=== PATIENT | female | born 1975 ===

== ENCOUNTER 2020-09-03 07:28 | Outpatient (REF) | payer OTHER, SELFPAY ==
[2020-09-03 07:51] LABS: COVID-19 Test Negative (Negative)
== END 2020-09-03 07:29 | disposition home or self-care (01) ==
LOC: HO.EMPCOV 07:28
PROVIDERS: Visit Provider Internal Medicine
DX: Z20.828 Contact with and (suspected) exposure to other viral communicable diseases (principal)
CPT/HCPCS: 87635; C9803

== ENCOUNTER 2020-11-11 07:38 | Outpatient (REF) | payer OTHER, SELFPAY ==
[2020-11-11 07:58] LABS: COVID-19 Test Negative (Negative)
== END 2020-11-11 07:39 | disposition home or self-care (01) ==
LOC: HO.EMPCOV 07:38
PROVIDERS: Visit Provider Internal Medicine
DX: Z11.52 Encounter for screening for COVID-19 (principal)
CPT/HCPCS: 36415; 87635; C9803

== ENCOUNTER → 2024-03-20 14:19 | Outpatient (BNVA) | payer OTHER, SELFPAY | PROVIDERS: Visit Provider Physician Assistant Medical | DX: Z13.89 Encounter for screening for other disorder (principal) | CPT/HCPCS: 71045; 73564; 99204 ==

== ENCOUNTER → 2024-03-22 13:15 | Outpatient (BNVA) | payer OTHER, SELFPAY | PROVIDERS: Visit Provider Physician Assistant Medical | DX: Z13.89 Encounter for screening for other disorder (principal) | CPT/HCPCS: 99213 ==

== ENCOUNTER → 2024-03-26 14:20 | Outpatient (BNVA) | payer OTHER, SELFPAY | PROVIDERS: Visit Provider Physician Assistant Medical | DX: Z13.89 Encounter for screening for other disorder (principal) | CPT/HCPCS: 99213 ==

== ENCOUNTER → 2024-04-02 13:45 | Outpatient (BNVA) | payer OTHER, SELFPAY | PROVIDERS: Visit Provider Physician Assistant Medical | DX: Z13.89 Encounter for screening for other disorder (principal) | CPT/HCPCS: 99213 ==

== ENCOUNTER → 2024-04-12 12:33 | Outpatient (BNVA) | payer OTHER, SELFPAY | PROVIDERS: Visit Provider Physician Assistant Medical | DX: Z13.89 Encounter for screening for other disorder (principal) | CPT/HCPCS: 99213 ==

== ENCOUNTER → 2024-04-19 13:12 | Outpatient (BNVA) | payer OTHER, SELFPAY | PROVIDERS: Visit Provider Physician Assistant Medical | DX: Z13.89 Encounter for screening for other disorder (principal) | CPT/HCPCS: 99213 ==

== ENCOUNTER → 2024-05-01 08:08 | Outpatient (BNVA) | payer OTHER, SELFPAY | PROVIDERS: Visit Provider Physician Assistant Medical | DX: Z13.89 Encounter for screening for other disorder (principal) | CPT/HCPCS: 99213 ==

== ENCOUNTER 2024-05-09 12:06 | Outpatient (REF) | payer OTHER, SELFPAY ==
--- NOTE | ~2024-05-09 | MR_ITS ---
EXAMINATION: MR KNEE WITHOUT CONTRAST, LEFT CLINICAL INFORMATION: Pain. Internal derangement. COMPARISON: Radiograph dated 03/20/2024 TECHNIQUE: MRI of the knee without contrast was performed using routine sequences on a high-field scanner. FINDINGS: MENISCI: Medial Meniscus: Intact Lateral Meniscus: Small horizontal cleavage tear of the free edge of the lateral meniscal body with associated degenerative intrasubstance signal. LIGAMENTS: Cruciate: Intact Collateral: Intact EXTENSOR MECHANISM: Mild quadriceps tendinosis. Patellar and quadriceps tendons are intact. ARTICULAR CARTILAGE/BONE: Patellofemoral Compartment: Severe, full-thickness articular cartilage loss is present at the majority of the lateral patellar facet and median ridge and is associated with subchondral edema and cortical irregularity. High-grade articular cartilage loss is also present at the lateral trochlear facet with underlying articular cortical remodeling, sclerosis, and subchondral edema. Moderate-sized marginal osteophytes. There is mild lateral patellar subluxation on the study obtained in frontal extension. TT TG distance measures 0.8 cm. Medial Compartment: Small to moderate-sized marginal osteophytes. Articular cartilage appears well-preserved Lateral Compartment: Moderate to large marginal osteophytes. Mild nonuniform thinning in the lateral tibial plateau, more pronounced medially. Minimal superficial chondral fibrillation of the femoral condyle weightbearing surface. Mild partial-thickness cartilage loss and full-thickness fissuring are evident at the proximal margin of the posterior nonweightbearing surface of the lateral femoral condyle. JOINT FLUID AND BURSAE: Moderate-sized joint effusion. No Anthony's cyst. Small synovial cysts are present of the anterior and posterior margin of the medial compartment near the meniscal tibial recesses. MR/MR knee LT wo con IMPRESSION: 1. Moderate to severe patellofemoral compartment osteoarthritis, characterized primarily by lateral compartment articular cartilage loss. More mild osteoarthritis in the lateral compartment. 2. Small horizontal cleavage tear of the lateral meniscal body. 3. Mild quadriceps tendinosis. 4. Moderate-sized joint effusion. Electronically signed by: Reinaldo Lantigua MD 05/13/2024 10:38 AM EDT
== END 2024-05-09 12:07 | disposition home or self-care (01) ==
LOC: HO.MRI 12:06
PROVIDERS: Visit Provider Physician Assistant Medical
DX: M23.92 Unspecified internal derangement of left knee (principal)
CPT/HCPCS: 73721

== ENCOUNTER 2024-05-14 10:13 | Outpatient (AMB) | payer OTHER, SELFPAY ==
--- NOTE | 2024-05-14 10:16 | MHC.OFFVIS ---
Vital Signs 05/14/24 10:25 Height 5 ft 5 in Weight 198 lb BMI 32.9 Intake Visit Reasons: [employer]-Left knee derangement contusion DOI 03/20/24 Intake Note: Jonathan chaudhry a 48 year old female who presents today as a new patient with complaints of left knee pain/WC injury. On 03/20/24 she was at work when she fell landing on her bilateral knees. Patient states her left knee is bothering her the most. Per patient report, physical therapy has been helpful. She has been taking cyclobenzaprine for her pain as well as using Voltaren with relief. Patient states she is unable to fully extend her knees. Denies prior injuries or surgeries to the knees. 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 She will be seeing [facility] tomorrow for evaluation. Allergies No Known Allergies Allergy (Verified 05/14/24 10:24) HPI HPI [employer]-Left knee derangement contusion DOI 03/20/24: Details: Jonathan chaudhry a 48 year old female who presents today as a new patient with complaints of left knee pain/WC injury. On 03/20/24 she was at work when she fell landing on her bilateral knees. Patient states her left knee is bothering her the most. Per patient report, physical therapy has been helpful. She has been taking cyclobenzaprine for her pain as well as using Voltaren with relief. Patient states she is unable to fully extend her knees. Denies prior injuries or surgeries to the knees. 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 She will be seeing [facility] tomorrow for evaluation. Physical Exam Vital Signs: BMI result Body Mass Index 32.9 Extrem Other: Left knee with moderate effusion and tenderness to palpation circumferentially. 0-125 degrees of motion. No joint line sensitivity. Negative Marisol's. Office Procedures Joint Injection/Aspiration Joint Injection/Aspiration Details: Injected 1 mL of Decadron and 3 mL 1% lidocaine and 3 mL of 0.25% Marcaine. Site was prepped using aseptic technique. Patient tolerated the procedure well. Primary Site: left knee Approach Used: anterolateral Coding 73954 - Large joint Procedure code (CPT) selection complete Results Reviewed Results Reviewed: Severe patellofemoral and moderate lateral compartment osteoarthritis as per MRI Assessment & Plan Assessment & Plan (1) Primary osteoarthritis of left knee: Code(s): M17.12 - Unilateral primary osteoarthritis, left knee Category: Medical Plan: This is a 48-year-old woman with patellofemoral and lateral compartment osteoarthritis of the left knee. She fell onto this knee proximally 6 weeks ago and had a flare-up of her pre-existing osteoarthritis. I discussed this with her. I injected her left knee today. She would like to return to work and I do not see any reason why she can not as long as she is comfortable and her pain is tolerable. She can follow up as needed. (2) Diabetes: Code(s): E11.9 - Type 2 diabetes mellitus without complications Category: Medical Plan: Informed of the hyperglycemic effects of steroids Coding Level of Care Code New Pt Level 4 (77563) Diagnoses Primary osteoarthritis of left knee M17.12 Diabetes E11.9 CPT Codes Coding - 45941 Large joint: 04756 - Large joint ([id number])
[2024-05-14 10:25] VITALS: BMI 32.9
== END 2024-05-14 11:11 | disposition home or self-care (01) ==
PROVIDERS: Visit Provider Orthopaedic Surgery
DX: M17.12 Unilateral primary osteoarthritis, left knee (principal); E11.9 Type 2 diabetes mellitus without complications
CPT/HCPCS: 20610; 99203

== ENCOUNTER → 2024-05-14 10:13 | Outpatient (BNVA) | payer OTHER, SELFPAY | PROVIDERS: Visit Provider Orthopaedic Surgery | DX: M17.12 Unilateral primary osteoarthritis, left knee (principal); E11.9 Type 2 diabetes mellitus without complications | CPT/HCPCS: 20610; 99202; J0665; J1100 ==

== ENCOUNTER → 2024-05-15 08:06 | Outpatient (BNVA) | payer OTHER, SELFPAY | PROVIDERS: Visit Provider Physician Assistant Medical | DX: Z13.89 Encounter for screening for other disorder (principal) | CPT/HCPCS: 99213 ==

== ENCOUNTER → 2024-05-29 09:58 | Outpatient (BNVA) | payer OTHER, SELFPAY | PROVIDERS: Visit Provider Physician Assistant Medical | DX: Z13.89 Encounter for screening for other disorder (principal) | CPT/HCPCS: 72100; 99214 ==

== ENCOUNTER 2024-06-06 14:59 | Outpatient (REF) | payer OTHER, SELFPAY ==
--- NOTE | ~2024-06-06 | MR_ITS ---
EXAMINATION: MR LUMBAR SPINE WITHOUT CONTRAST CLINICAL INFORMATION: Lumbar radiculopathy. COMPARISON: Lumbar spine radiographs 05/29/2024. TECHNIQUE: MRI of the lumbar spine was obtained using routine sequences without contrast. FINDINGS: Spinal alignment is normal. Vertebral body heights are preserved. No acute bone marrow signal changes. There is disc desiccation at multiple levels without substantial loss of intervertebral disc height. The tip of the conus medullaris is located at L2-L3. No mass effect on the conus. Visualized distal cord signal intensity is normal. At L1-L2 there is a slightly bulging disc. No canal stenosis. No mass effect on the traversing or foraminal nerve roots. At L2-L3 there is a slightly bulging disc. No canal stenosis. No mass effect on the traversing or foraminal nerve roots. At L3-L4 there is an asymmetrically bulging disc to the left. No canal stenosis. No mass effect on the traversing or foraminal nerve roots. At L4-L5 there is a tiny left foraminal protrusion superimposed upon a bulging disc. No canal stenosis. No mass effect on the traversing or foraminal nerve roots. At L5-S1 there is a slightly bulging disc. Advanced bilateral facet degenerative change. No canal stenosis. No mass effect on the traversing or foraminal nerve roots. Limited visualization of the retroperitoneal anatomy reveals no abnormal finding. Psoas and paraspinal muscle groups are symmetric. MR/MR lumbar spine wo con IMPRESSION: There is mild disc degeneration at multiple levels within the lumbar spine. Advanced degenerative arthrosis of the articular facet joints at L5-S1. No canal stenosis. No mass effect on the traversing or foraminal nerve roots. Electronically signed by: Elias Cruz MD 06/14/2024 10:07 AM EDT
== END 2024-06-06 15:00 | disposition home or self-care (01) ==
LOC: HO.MRI 14:59
PROVIDERS: Visit Provider Physician Assistant Medical
DX: M54.16 Radiculopathy, lumbar region (principal)
CPT/HCPCS: 72148

== ENCOUNTER 2024-06-07 10:37 | Outpatient (AMB) | payer OTHER, SELFPAY ==
--- NOTE | 2024-06-07 10:44 | A.OFFVIS_ITS ---
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 States has happened about once per week, usually while standing and resolves with rest Pain today is rated as a 10/10, constant and worse in the morning Pain is exacerbated by movement, twisting, bending, lifting Improves with rest, medications and lying down though states she is very stiff when she wakes up in the morning She is currently in physical therapy and reports that it is helping some Taking cyclobenzaprine at bedtime with some improvement. Also taking ibuprofen as needed with some improvement though pain returns as soon as the medication wears off Denies red flag symptoms including loss of bowel, bladder or saddle anesthesia In terms of muscle damage condition is described as aching, spasming, hot, burning, stabbing, sharp, shooting, shocking, cramping, squeezing, numb Pain is negatively impacting patient's enjoyment of life, general activity, normal work, recreational activities, sleep and walking Denies current use of anticoagulants Denies implantable devices, pacemaker or defibrillator Denies current use of nicotine, tobacco, alcohol or illicit substances [facility] Medical History (Updated 06/07/24 @ 12:41 by Katia Simon APRN, [employer]) Lumbar strain Hypothyroid Review of Systems Const All systems reviewed & are unremarkable except as noted in HPI and below Physical Exam Vital Signs: Last Vital Signs Pulse 85 06/07/24 10:46 BP 125/78 06/07/24 10:46 Pulse Ox 99 06/07/24 10:46 Oxygen Delivery Method Room Air 06/07/24 10:46 BMI result Body Mass Index 32.9 General: awake, alert, oriented. Answers questions appropriately. Fully engaged in examination. Skin: warm, dry, intact HEENT: Normocephalic. Hearing intact. Cardiac: External chest normal in appearance. Respiratory: No cough, audible wheezing or stridor. Abdomen: without gross distension. MS: No obvious swelling or deformities. Able to stand on bilateral tiptoes and bilateral heels.? Able to transition from sit to stand unassisted. Ambulates with bilaterally normal heel strike and toe off Bilateral lower extremity strength 5/5 SLR negative bilaterally Nontender over bilateral PSIS Facet loading positive Decreased range of motion secondary to pain Tenderness over midline lumbar vertebrae and lumbar paraspinal muscles, right worse than left Tenderness to palpation lumbar musculature, right worse than left Neurological: Oriented to person, place, time and situation. Thought process intact. No gait abnormalities appreciated. Psychiatric: Appropriate mood and affect. Good judgment and insight. Results Reviewed Results Reviewed: MRI lumbar spine results pending Assessment & Plan Assessment & Plan (1) Lumbar spondylosis: Code(s): M47.816 - Spondylosis without myelopathy or radiculopathy, lumbar region Category: Medical Plan Order placed for PT eval and treat, patient currently in PT and is finding some improvement of her symptoms would like to extend with more visits. Diclofenac 50 mg p.o. b.i.d., patient advised on cautions for use. Take with food, do not take with any other nonsteroidal anti-inflammatory medications Refill of lidocaine patches and cyclobenzaprine Discussed options for treatment including diagnostic interventional testing, epidural steroid injections, peripheral nerve stimulation with Sprint, RFA and more permanent neuromodulation. Patient would like to try continue with physical therapy and anti-inflammatory medications. If pain persists will plan for fluoroscopy guided bilateral diagnostic L3-L4 DR L5 medial branch blocks with local anesthetic. All questions and concerns have been answered and patient agrees with the plan. Follow up after injections and sooner if needed. Orders: Orders PT Evaluation and Treatment Today M47.816 - Spondylosis without myelopathy or radiculopathy, lumbar region, M54.50 - Low back pain, unspecified Medications: New diclofenac potassium Take with food, do not take with any other nonsteroidal anti-inflammatory medications 50 mg PO BID 60 tabs 3RF Refilled lidocaine 5% (Lidocan IV) leave on most painful area for up to 12 hrs 1 patch topical DAILY 15 ea 6RF cyclobenzaprine 10 mg PO BEDTIME PRN 30 tabs 0RF muscle spasm Coding Level of Care Code New Pt Level 4 (08442) Complex EM visit Add On G2211 Diagnoses Lumbar spondylosis M47.816
[2024-06-07 10:46] VITALS: BP 125/78; PULSE 85; O2SAT 99; BMI 32.9
== END 2024-06-07 11:23 | disposition home or self-care (01) ==
PROVIDERS: Visit Provider Registered Nurse Emergency
DX: M47.816 Spondylosis without myelopathy or radiculopathy, lumbar region (principal)
CPT/HCPCS: 99204; G2211

== ENCOUNTER → 2024-06-07 10:37 | Outpatient (BNVA) | payer OTHER, SELFPAY | PROVIDERS: Visit Provider Registered Nurse Emergency | DX: M47.816 Spondylosis without myelopathy or radiculopathy, lumbar region (principal) | CPT/HCPCS: 99202 ==

== ENCOUNTER → 2024-06-14 15:05 | Outpatient (BNVA) | payer OTHER, SELFPAY | PROVIDERS: Visit Provider Physician Assistant Medical | DX: Z13.89 Encounter for screening for other disorder (principal) | CPT/HCPCS: 99213 ==

== ENCOUNTER 2024-06-26 12:00 | Outpatient (RCR) | payer OTHER, BC, SELFPAY ==
--- NOTE | 2024-04-09 18:22 | MHC.PT.EP ---
[facility] [place] Office [place] Office [place] Office [address] Rodolfo Aranda [address] [phone] F: [phone] F: [phone] F: [phone] F: [phone] Physical Therapy Plan of Care Date of Evaluation: 04/09/24 Date of Surgery: N/A Diagnosis: bilateral knee strain (RL) on script: chest contusion, L biceps/shoulder strain, bilateral knee contusion/strain L>R Assessment: pt is a 48 y/o female presenting to physical therapy w/ referring diagnosis of chest contusion, L biceps/shoulder strain, bilateral knee contusion/strain L>R. pt presents after a mechanical fall at work w/ multiple body regions experiencing persistent pain. She would like to focus on her knees at this time. She does have chest, shoulder/upper arm pain as well. She reported back pain today; however, this was not on the script. Will call referring provider to obtain updated script if appropriate for PT treatment. Impairments include pain, decreased range of motion, decreased strength, impaired functional mobility, impaired postural awareness, and altered ambulation mechanics. pt is a good candidate for skilled PT due to age, potential remediation of impairments, typical disease/condition progression and prognosis, comorbidities, and motivation. pt would benefit from skilled PT intervention to provide a tailored strengthening and stretching exercise program, functional training, gait training, postural re-training, neuromuscular re-education, modalities as needed for pain, equipment safety demonstration. Frequency and Duration: The patient will be seen 2x/wk for 12 weeks Short Term Goals: pt will be I w/ HEP to promote self-management of condition. pt will improve B quad strength by 1 MMT grade to promote ease in sit<>stand transfers. [employer] Goals: pt will report a statistically significant improvement in self-reported outcome measure, LEFI, to promote return to PLOF. pt will ambulate >2600' no AD w/ <3/10 L knee pain to promote pain-limited return to community ambulation for activities such as grocery shopping. Treatment Plan: Modalities to reduce pain, spasms and effusion. Manual therapy to restore motion and function. Therapeutic exercise to improve strength and flexibility. Neuromuscular re-education for posture and balance. Therapeutic activities to return to functional activities of daily living. Electronically signed by: Marine Bradford PT, DPT Please sign and return to therapist. Thank you for your referral.
--- NOTE | 2024-05-28 18:18 | MHC.PT.DC ---
[facility] [place] Office [place] Office [place] Office [address] Rodolfo Aranda 140 [facility] [phone] F: [phone] F: [phone] F: [phone] F: [phone] Physical Therapy Discharge Report Diagnosis: bilateral knee strain (RL) on script: chest contusion, L biceps/shoulder strain, bilateral knee contusion/strain L>R Date of Surgery: N/A Date of Evaluation: 04/09/24 Date of Discharge: 05/28/24 Treatments to Date: 8 Cancellations to Date: 4 No Shows to Date: 3 Discharge Status: Visit Non-compliance Discharge Summary: The patient has no showed three appointments. Per [facility] Therapy policy she is discharged for non-compliance. During the last few visits the patient would either come 20 minutes late or would ask to leave 40 minutes early (15 minute session). She was reporting an improvement in her bilateral knee pain. She did not have any complaints of shoulder or neck pain at time of last visit (2 weeks ago). The patient was complaining of back pain; however, this therapist never received an order for back pain so it was not evaluated or treated. Though, her back pain did improve with treatment for her knees. Again, she is discharged for non-compliance. Electronically signed by: Marine Bradford PT, DPT Please sign and return to therapist. Thank you for your referral.
--- NOTE | 2024-07-04 10:45 | MHC.PT.DC ---
[facility] [place] [facility] [place] Office [place] Office [address] Rodolfo Aranda [address] [place] [address] [phone] F: [phone] F: [phone] F: [phone] F: [phone] Physical Therapy Discharge Report Diagnosis: bilateral knee strain (RL) on script: chest contusion, L biceps/shoulder strain, bilateral knee contusion/strain L>R Date of Surgery: N/A Date of Evaluation: 04/09/24 Date of Discharge: 07/04/24 Treatments to Date: 9 Cancellations to Date: 6 No Shows to Date: 4 Discharge Status: Visit Non-compliance Discharge Summary: The patient is being discharged again for poor attendance. She was given a second chance and since her re-evaluation on 06/26/24 has already missed 3 additional appointments. Her assessment after said re-evaluation can be seen below. She is discharged again for non-compliance. Re-evaluation as pt has not attended in 43 days. Pt continues to present to PT with current impairments in pain, decreased ROM, decreased strength, and impaired gait. She has improved her score on LEFI outcome measure from 19/80 on initial PT evaluation to 36/80 today. She has improved her B knee ROM and strength (please see objective section for details). She will continue to benefit from skilled PT 2x/week for 3 additional weeks in order to maximize function to facilitate return to PLOF Electronically signed by: Marine Bradford PT, DPT Please sign and return to therapist. Thank you for your referral.
== END 2024-07-04 10:46 | disposition home or self-care (01) ==
LOC: HO.PT 12:00
PROVIDERS: Absent Provider Registered Nurse Emergency; Visit Provider Physician Assistant Medical
DX: S39.012A Strain of muscle, fascia and tendon of lower back, initial encounter (principal); S80.02XD Contusion of left knee, subsequent encounter; S80.01XD Contusion of right knee, subsequent encounter; S46.212D Strain of muscle, fascia and tendon of other parts of biceps, left arm, subsequent encounter; M47.816 Spondylosis without myelopathy or radiculopathy, lumbar region
CPT/HCPCS: 97110; 97112; 97162; 97164

== ENCOUNTER → 2024-07-06 15:23 | Outpatient (BNVA) | payer OTHER, SELFPAY | PROVIDERS: Visit Provider Physician Assistant Medical | DX: Z13.89 Encounter for screening for other disorder (principal) | CPT/HCPCS: 99213 ==

== ENCOUNTER → 2024-08-06 11:04 | Outpatient (BNVA) | payer OTHER, SELFPAY | PROVIDERS: Visit Provider Physician Assistant Medical | DX: Z13.89 Encounter for screening for other disorder (principal) | CPT/HCPCS: 99213 ==